=== PATIENT | female | born 1985 | race Caucasian/White ===

== ENCOUNTER 2017-05-18 06:46 | Day surgery (SDC) | payer BC ==
[2017-05-07 14:31] VITALS: BMI 36.3
[~2017-05-18 06:46] MED LIST: CLINDAMYCIN 900 MG in DEXTROSE 5% IN WATER 50 ML IVPB ONE; DEXAMETHASONE SOD PHOSPHATE 10 MG/ML 1 ML VIAL IV ONE; HEPARIN SODIUM,PORCINE 5,000 UNIT/ML 1 ML VIAL SQ ONE; LACTATED RINGERS 1,000 ML IV SCH; LEVOFLOXACIN 500MG-D5W PMX 500 MG in DEXTROSE/WATER 1 100ML.BAG IVPB ONE; MIDAZOLAM 2 MG/2 ML VIAL IV PRN; MORPHINE SULFATE 4MG/4ML SYRG IV PRN; ONDANSETRON 4 MG/2 ML VIAL IVP ONE
[2017-05-18] MEDS ORDERED: LACTATED RINGERS 1,000 ML IV ONE ×3 (07:10→09:37)
[2017-05-18] MEDS ORDERED: LIDOCAINE 1% 20 ML VIAL (10MG/ML) FOR IV START INTRADERMA ONE (07:11)
[2017-05-18] MEDS ORDERED: SCOPOLAMINE 1.5MG/72HR PATCH TRANSDERM ONE (07:24)
[2017-05-18] MEDS ORDERED: BUPIVACAINE (PF) 0.25% 30 ML VIAL SQ ONE ×2 (07:24)
--- NOTE | 2017-05-18 07:56 | P.GSHP ---
History of Present Illness H&P Date: 05/18/17 Chief Complaint: Ventral hernia, incarcerated This is a 32-year-old female who presents today for laparoscopic robotic system repair of incarcerated ventral hernia. Patient developed a 5 cm mass located above her umbilicus. Past Medical History Past Medical History: No Reported History Additional Past Medical History / Comment(s): hernia History of Any Multi-Drug Resistant Organisms: None Reported Past Surgical History: Cholecystectomy Additional Past Surgical History / Comment(s): Colonoscopy,EGD Past Anesthesia/Blood Transfusion Reactions: No Reported Reaction Smoking Status: Never smoker - Past Family History Mother Family Medical History: No Reported History Medications and Allergies Home Medications Medication Instructions Recorded Confirmed Type No Known Home Medications [No 05/07/17 05/07/17 History Known Home Medications] Allergies Allergy/AdvReac Type Severity Reaction Status Date / Time Penicillins Allergy Anaphylaxis Verified 05/07/17 14:25 sulfamethoxazole Allergy Anaphylaxis Verified 05/07/17 14:25 [From Septra] trimethoprim [From Septra] Allergy Anaphylaxis Verified 05/07/17 14:25 Surgical - Exam Vital Signs Temp Pulse Resp BP Pulse Ox 98.4 F 85 18 108/58 95 05/18/17 07:09 05/18/17 07:09 05/18/17 07:09 05/18/17 07:09 05/18/17 07:09 - General well developed, no distress - Eyes PERRL - ENT normal pinna - Neck no masses - Respiratory normal expansion - Cardiovascular Rhythm: regular - Abdomen Abdomen: soft, non tender (5 cm incarcerated ventral hernia located proximal before centimeters above the umbilicus.) Assessment and Plan Assessment: Incarcerated ventral hernia. We'll perform laparoscopic robotic system repair.
[2017-05-18] MEDS ORDERED: GLYCOPYRROLATE 0.2 MG/ML 2 ML VIAL ONE (07:59)
[2017-05-18] MEDS ORDERED: MIDAZOLAM 2 MG/2 ML VIAL ONE (07:59)
[2017-05-18] MEDS ORDERED: LIDOCAINE 1% INJ 10MG/ML (20 ML MDV) ONE (07:59)
[2017-05-18] MEDS ORDERED: MORPHINE SULFATE 10 MG/ML SYRINGE ONE (07:59)
[2017-05-18] MEDS ORDERED: fentaNYL (PF) 50 MCG/ML 2 ML AMP ONE (07:59)
[2017-05-18] MEDS ORDERED: NEOSTIGMINE 1 MG/ML 10 ML VIAL ONE (07:59)
[2017-05-18] MEDS ORDERED: KETOROLAC 30 MG/ML 1 ML VIAL ONE (07:59)
[2017-05-18] MEDS ORDERED: PROPOFOL 10 MG/ML 20 ML VIAL IV ONE (07:59)
[2017-05-18] MEDS ORDERED: SUCCINYLCHOLINE CHLORIDE 100 MG/5 ML SYR IV ONE (07:59)
[2017-05-18] MEDS ORDERED: ROCURONIUM BROMIDE 10 MG/ML 10 ML VIAL IV ONE (07:59)
[2017-05-18 09:41] VITALS: TEMP 97.6
[2017-05-18] MEDS ORDERED: fentaNYL (PF) 50 MCG/ML 2 ML AMP IV ONE (09:41)
--- NOTE | 2017-05-18 09:47 | P.OP ---
Date of Procedure: 05/18/17 Preoperative Diagnosis: Incarcerated ventral hernia Postoperative Diagnosis: Incarcerated ventral hernia Procedure(s) Performed: Laparoscopic robotic repair of incarcerated ventral hernia Partial omentectomy Anesthesia: LOI Surgeon: Kenneth Lim Estimated Blood Loss (ml): 5 Pathology: other Condition: stable Disposition: PACU Description of Procedure: The patient was placed on the operating table in the supine position. He received general anesthesia. His abdomen was prepped and draped usual fashion. Using a 5 mm optical trocar under direct visualization the peritoneal cavity was entered in the left upper quadrant. The abdomen was then insufflated. The laparoscope was placed back into the perineal cavity. Next a 8 mm robotic trocar was placed in the left lower quadrant and a 12 mm robotic trocar was placed in the left lateral position. The original 5 mm trocar was exchanged for a 8 mm robotic trocar. The patient's placed in the left side up position. And the patient was docked to the robot. The ventral hernia was visualized. Using hook cautery the peritoneum over the incisional hernia was excised. The incarcerated omentum was withdrawn from the hernia. The nonviable omentum was transected using electrocautery. The fascial opening was repaired using 0V LOC suture. Next a piece of 11 cm round ventral light ST mesh was placed into the. Cavity and secured with 2 OV lock suture. The patient was undocked the robot. The needles were retrieved. The omentum was retrieved. The fascia of the 12 mm trocar site was closed with 0 Ethibond suture. Skin was closed interrupted 3-0 Monocryl suture. Dermabond dressings was applied. Patient tolerated procedure well and was sent to recovery room stable condition.
[2017-05-18] MEDS ORDERED: fentaNYL (PF) 50 MCG/ML 2 ML AMP IVP ONE (09:50)
[2017-05-18] MEDS ORDERED: diphenhydrAMINE 50 MG/ML 1 ML VIAL IVP ONE (09:55)
[2017-05-18 10:35] VITALS: RESP 18
[2017-05-18 12:38] VITALS: BP 113/75; PULSE 79
[2017-05-18] MEDS ORDERED: HYDROcodone/APAP 7.5-325MG 1 EACH TAB PO ONE (12:39)
== END 2017-05-18 13:36 | disposition home or self-care (01) ==
LOC: OR 06:46
PROVIDERS: ATTEND Surgery
DX: K43.6 Other and unspecified ventral hernia with obstruction, without gangrene (principal); Z90.49 Acquired absence of other specified parts of digestive tract; E66.3 Overweight; Z68.36 Body mass index [BMI] 36.0-36.9, adult; K21.9 Gastro-esophageal reflux disease without esophagitis; Z88.0 Allergy status to penicillin; Z88.2 Allergy status to sulfonamides; Z88.1 Allergy status to other antibiotic agents
CPT/HCPCS: 81025; 86900; 86901; 88305; 86850; 49653; C1781; J2250; J1200; J1644; J1100; J2710; J2270; J2405; J1956; J2001; J3010; J1885; J0330; J2704

== ENCOUNTER → 2020-05-22 | Outpatient (CLI) | payer BC | END | disposition home or self-care (01) | LOC: LABWHC1 15:31 | PROVIDERS: ATTEND Family Medicine | DX: R43.2 Parageusia (principal) | CPT/HCPCS: U0003; C9803 ==

== ENCOUNTER → 2020-05-28 | Outpatient (CLI) | payer BC ==
--- NOTE | 2020-05-28 13:49 | XR ---
EXAMINATION TYPE: XR chest 2V DATE OF EXAM: 05/28/2020 COMPARISON: None HISTORY: 35-year-old female R06, chest pain TECHNIQUE: Frontal and lateral views FINDINGS: Heart size is accentuated due to AP technique. Aorta and pulmonary vasculature within normal limits. Hazy lower lung densities related to overlying soft tissue. No consolidation or pleural effusion seen IMPRESSION: No definite acute process.
== END | disposition home or self-care (01) ==
LOC: RADXRMAIN 13:26
PROVIDERS: ATTEND Family Medicine
DX: R06.00 Dyspnea, unspecified (principal)
CPT/HCPCS: 71046

== ENCOUNTER → 2020-11-06 | Outpatient (CLI) | payer BC ==
--- NOTE | 2020-11-06 14:50 | FL ---
EXAMINATION TYPE: FL hysterosalpingography DATE OF EXAM: 11/06/2020 HISTORY: Infertility. Informed consent was obtained and all the patient's questions were answered. Pulmonary film of the p sharon reveals no distinct abnormality. A speculum was introduced and the external cervical os was lo calize. The external cervical os was cleansed and a Betadine solution on 3 occasions. Hysterosalpin gography catheter was introduced into the uterus and balloon insufflation device deployed. Approxima tely 12 cc of nonionic contrast was injected in a retrograde manner. The uterus has a normal size shape and appearance. No persistent uterine filling defects are seen. Both fallopian tubes fill with contrast. There are moderate bilateral hydrosalpinx right greater than left without evidence for spill into the peritoneal cavity. IMPRESSION: 1. Bilateral hydrosalpinx right greater than left without spill of contrast into the peritoneal cavit y.
== END | disposition home or self-care (01) ==
LOC: RADUSWWP 13:07
PROVIDERS: ATTEND Obstetrics & Gynecology Obstetrics
DX: N70.11 Chronic salpingitis (principal)
CPT/HCPCS: 58340; 74740; Q9967

== ENCOUNTER 2020-11-10 11:38 | Emergency (ER) | payer BC ==
[2020-11-10 12:01] VITALS: BP 132/75; PULSE 84; RESP 18; TEMP 98.7
--- NOTE | 2020-11-10 12:33 | ED ---
General Adult HPI - General Chief complaint: Urogenital Stated complaint: Female & abd pain Time Seen by Provider: 11/10/20 12:04 Source: patient Mode of arrival: ambulatory Limitations: no limitations - History of Present Illness Initial comments: Dictation was produced using [employer] dictation software. please excuse any grammatical, word or spelling errors. Chief Complaint: 35-year-old male presents with abdominal pain. History of Present Illness: She is 35-year-old female. 5 days ago she had a hysterosalpingogram performed by radiology. She is doing fine 2 days after the procedure. 3 days ago she began developing abdominal pain. She states that it's to her epigastric and right side of her abdomen. Worse when she stands up. She does complain of nausea. No vomiting. No diarrhea. No fevers. She has history of cholecystectomy and hernia repair. Patient states that the pain is constant. She was told to expect some mild vaginal bleeding. She has had some mild vaginal bleeding. No discharge. She has not received the results for her procedure. She states that the pain feels like it's in her lower abdomen when she stands. She reports that it feels like it's up top when she is laying down. She had this procedure performed due to difficulties getting . This was ordered by her OPHTHALMOLOGY TECHNICIAN. The ROS documented in this emergency department record has been reviewed and confirmed by me. Those systems with pertinent positive or negative responses have been documented in the HPI. All other systems are other negative and/or noncontributory. PHYSICAL EXAM: General Impression: Alert and oriented x3, not in acute distress HEENT: Normocephalic atraumatic, extra-ocular movements intact, pupils equal and reactive to light bilaterally, mucous membranes moist. Cardiovascular: Heart regular rate and rhythm Chest: Able to complete full sentences, no retractions, no tachypnea Abdomen: abdomen soft, mild palpatory tenderness to the entire abdomen, non- distended, no organomegaly Musculoskeletal: Pulses present and equal in all extremities, no peripheral edema Motor: no focal deficits noted Neurological: CN II-XII grossly intact, no focal motor or sensory deficits noted Skin: Intact with no visualized rashes Psych: Normal affect and mood ED course: 35-year-old female presents with abdominal pain. She is 5 days status post hysterosalpingogram. Vital signs upon arrival are within acceptable limits. Chart review was performed. Patient had hysterosalpingogram performed 5 days ago. Result shows bilateral hydrosalpinx right greater than left without spell of contrast into the peritoneal cavity. It is unclear if this procedure is what is causing patient's symptoms. Pelvic exam: No cervical motion or adnexal tenderness. Cervical os is closed with mild discharge. No evidence of cervical erythema or cervicitis. Vaginal mucosa is pink without any lesions After evaluation obtained. CBC, metabolic panel is unremarkable. Urinalysis shows 7 white blood cells. She does not have any urinary symptoms. Abdominal x-rays nonacute. Patient reevaluated bedside I&D in stable medical condition. Abdominal x-ray is unremarkable. Patient reevaluated at 2:30 PM found to be in stable medical condition. Patient does not appear to be in acute distress. She still reports some mild tenderness. Patient stable for discharge. No life- threatening issues noted. She has follow-up with her paralegals next week. Return precautions discussed. Patient discharge. - Related Data Previous Rx's Medication Instructions Recorded Docusate [Colace] 100 mg PO BID #20 capsule 05/18/17 HYDROcodone/APAP 7.5-325MG [[place] 1 each PO Q4H PRN #30 tab 05/18/17 7.5] Allergies Allergy/AdvReac Type Severity Reaction Status Date / Time Penicillins Allergy Anaphylaxis Verified 11/10/20 12:01 sulfamethoxazole Allergy Anaphylaxis Verified 11/10/20 12:01 [From ] trimethoprim [From ] Allergy Anaphylaxis Verified 11/10/20 12:01 Review of Systems ROS Statement: Those systems with pertinent positive or pertinent negative responses have been documented in the HPI. ROS Other: All systems not noted in ROS Statement are negative. Past Medical History Past Medical History: No Reported History Additional Past Medical History / Comment(s): hernia History of Any Multi-Drug Resistant Organisms: None Reported Past Surgical History: Cholecystectomy, Hernia Repair Additional Past Surgical History / Comment(s): Colonoscopy,EGD Past Anesthesia/Blood Transfusion Reactions: No Reported Reaction Past Psychological History: No Psychological Hx Reported Smoking Status: Never smoker Past Alcohol Use History: Occasional Past Drug Use History: Marijuana - Past Family History Mother Family Medical History: No Reported History General Exam Limitations: no limitations Course Vital Signs 11/10/20 11:58 Temperature 98.7 F Pulse Rate 84 Respiratory 18 Rate Blood Pressure 132/75 O2 Sat by Pulse 96 Oximetry Medical Decision Making - Lab Data Result diagrams: 11/10/20 13:31 11/10/20 13:31 Lab Results 11/10/20 11/10/20 11/10/20 Range/Units 13:31 13:31 13:31 WBC 10.0 (3.8-10.6) k/uL RBC 4.52 (3.80-5.40) m/uL Hgb 14.2 (11.4-16.0) gm/dL Hct 40.9 (34.0-46.0) % MCV 90.6 (80.0-100.0) fL MCH 31.5 (25.0-35.0) pg MCHC 34.7 (31.0-37.0) g/dL RDW 14.2 (11.5-15.5) % Plt Count 368 (150-450) k/uL MPV 6.8 Neutrophils % 75 % Lymphocytes % 17 % Monocytes % 4 % Eosinophils % 1 % Basophils % 0 % Neutrophils # 7.5 (1.3-7.7) k/uL Lymphocytes # 1.7 (1.0-4.8) k/uL Monocytes # 0.4 (0-1.0) k/uL Eosinophils # 0.1 (0-0.7) k/uL Basophils # 0.0 (0-0.2) k/uL Sodium (137-145) mmol/L Potassium (3.5-5.1) mmol/L Chloride (98-107) mmol/L Carbon Dioxide (22-30) mmol/L Anion Gap mmol/L BUN (7-17) mg/dL Creatinine (0.52-1.04) mg/dL Est GFR (CKD-EPI)AfAm (>60 ml/min/1.73 sqM) Est GFR (CKD-EPI)NonAf (>60 ml/min/1.73 sqM) Glucose (74-99) mg/dL Calcium (8.4-10.2) mg/dL Total Bilirubin (0.2-1.3) mg/dL AST (14-36) U/L ALT (4-34) U/L Alkaline Phosphatase (38-126) U/L Total Protein (6.3-8.2) g/dL Albumin (3.5-5.0) g/dL Lipase (23-300) U/L Urine Color Light Yellow Urine Appearance Clear (Clear) Urine pH 6.5 (5.0-8.0) Ur Specific [place] 1.006 (1.001-1.035) Urine Protein Negative (Negative) Urine Glucose (UA) Negative (Negative) Urine Ketones 1+ H (Negative) Urine Blood Negative (Negative) Urine Nitrite Negative (Negative) Urine Bilirubin Negative (Negative) Urine Urobilinogen <2.0 (<2.0) mg/dL Ur Leukocyte Esterase Small H (Negative) Urine WBC 7 H (0-5) /hpf Ur Squamous Epith Cells 1 (0-4) /hpf Urine Mucus Rare H (None) /hpf Urine HCG, Qual Not Detected (Not Detectd) 11/10/20 Range/Units 13:31 WBC (3.8-10.6) k/uL RBC (3.80-5.40) m/uL Hgb (11.4-16.0) gm/dL Hct (34.0-46.0) % MCV (80.0-100.0) fL MCH (25.0-35.0) pg MCHC (31.0-37.0) g/dL RDW (11.5-15.5) % Plt Count (150-450) k/uL MPV Neutrophils % % Lymphocytes % % Monocytes % % Eosinophils % % Basophils % % Neutrophils # (1.3-7.7) k/uL Lymphocytes # (1.0-4.8) k/uL Monocytes # (0-1.0) k/uL Eosinophils # (0-0.7) k/uL Basophils # (0-0.2) k/uL Sodium 140 (137-145) mmol/L Potassium 3.5 (3.5-5.1) mmol/L Chloride 105 (98-107) mmol/L Carbon Dioxide 27 (22-30) mmol/L Anion Gap 8 mmol/L BUN 7 (7-17) mg/dL Creatinine 0.56 (0.52-1.04) mg/dL Est GFR (CKD-EPI)AfAm >90 (>60 ml/min/1.73 sqM) Est GFR (CKD-EPI)NonAf >90 (>60 ml/min/1.73 sqM) Glucose 102 H (74-99) mg/dL Calcium 9.7 (8.4-10.2) mg/dL Total Bilirubin 0.5 (0.2-1.3) mg/dL AST 18 (14-36) U/L ALT 15 (4-34) U/L Alkaline Phosphatase 73 (38-126) U/L Total Protein 7.0 (6.3-8.2) g/dL Albumin 3.9 (3.5-5.0) g/dL Lipase 71 (23-300) U/L Urine Color Urine Appearance (Clear) Urine pH (5.0-8.0) Ur Specific [place] (1.001-1.035) Urine Protein (Negative) Urine Glucose (UA) (Negative) Urine Ketones (Negative) Urine Blood (Negative) Urine Nitrite (Negative) Urine Bilirubin (Negative) Urine Urobilinogen (<2.0) mg/dL Ur Leukocyte Esterase (Negative) Urine WBC (0-5) /hpf Ur Squamous Epith Cells (0-4) /hpf Urine Mucus (None) /hpf Urine HCG, Qual (Not Detectd) Disposition Clinical Impression: Abdominal pain Disposition: HOME SELF-CARE Condition: Good Instructions (If sedation given, give patient instructions): Abdominal Pain (ED) Is patient prescribed a controlled substance at d/c from ED?: No Referrals: Skye Yu DO [Doctor of Osteopathic Medicine] - 1-2 days
--- NOTE | 2020-11-10 14:01 | XR ---
EXAMINATION TYPE: XR abdomen 1V DATE OF EXAM: 11/10/2020 1:57 PM CLINICAL HISTORY: Lower abdominal pain since hysterectomy 5 days ago TECHNIQUE: Two Upright KUB images of the abdomen are obtained. COMPARISON: None. FINDINGS: Scattered gas is seen in non-distended small bowel loops. Gas and fecal material is seen in non-distended colon. Cholecystectomy clips are present. Scattered pelvic phleboliths. No free air. V isualized lung bases are clear. Underlying scoliotic curvature in the lumbar spine is present. IMPRESSION: Overall nonobstructive bowel gas pattern.
[2020-11-10 14:05] LABS: Basophils % (A) 0 %; Eosinophils # (A) 0.1 k/uL (0-0.7); Eosinophils % (A) 1 %; HCT 40.9 % (34.0-46.0); HGB 14.2 gm/dL (11.4-16.0); Lymphocytes # (A) 1.7 k/uL (1.0-4.8); Lymphocytes % (A) 17 %; MCH 31.5 pg (25.0-35.0); MCHC 34.7 g/dL (31.0-37.0); MCV 90.6 fL (80.0-100.0); Mean Platelet Volume 6.8; Monocytes # (A) 0.4 k/uL (0-1.0); Monocytes % (A) 4 %; Neutrophils # (A) 7.5 k/uL (1.3-7.7); Neutrophils % (A) 75 %; Platelet Count 368 k/uL (150-450); RBC 4.52 m/uL (3.80-5.40); RDW 14.2 % (11.5-15.5)
[2020-11-10 14:14] LABS: Appearance,Urine Clear (Clear); Bilirubin,Urine Negative (Negative); Blood,Urine Negative (Negative); Color,Urine Light Yellow; Glucose,Urine (UA) Negative (Negative); Ketones,Urine 1+ (Negative); Leukocyte Esterase,Urine Small (Negative); Mucus,Urine Rare /hpf; Nitrite,Urine Negative (Negative); PH, Urine 6.5 (5.0-8.0); Protein,Urine Negative (Negative); Specific Gravity,Urine 1.006 (1.001-1.035); Squamous Epithelial Cell,Urine 1 /hpf (0-4); Urobilinogen,Urine <2.0 mg/dL (<2.0); WBC,Urine 7 /hpf (0-5)
[2020-11-10 14:18] LABS: ALT 15 U/L (4-34); AST 18 U/L (14-36); African American GFR (CKD) >90 (>60 ml/min/1.73 sqM); Albumin 3.9 g/dL (3.5-5.0); Alkaline Phosphatase 73 U/L (38-126); Anion Gap 8 mmol/L; Blood Urea Nitrogen 7 mg/dL (7-17); Calcium 9.7 mg/dL (8.4-10.2); Carbon Dioxide 27 mmol/L (22-30); Chloride 105 mmol/L (98-107); Glucose 102 mg/dL (74-99); Lipase 71 U/L (23-300); Non-African American GFR(CKD) >90 (>60 ml/min/1.73 sqM); Potassium 3.5 mmol/L (3.5-5.1); Sodium 140 mmol/L (137-145); Total Bilirubin 0.5 mg/dL (0.2-1.3)
== END 2020-11-10 14:56 | disposition home or self-care (01) ==
LOC: EC 11:38
DX: R10.30 Lower abdominal pain, unspecified (principal); R11.0 Nausea; Z88.0 Allergy status to penicillin; Z88.1 Allergy status to other antibiotic agents; Z88.2 Allergy status to sulfonamides; Z90.49 Acquired absence of other specified parts of digestive tract; Z90.710 Acquired absence of both cervix and uterus
CPT/HCPCS: 36415; 74018; 80053; 81001; 81025; 83690; 85025; 87491; 87591; 99284

== ENCOUNTER 2022-01-29 05:58 | Inpatient (IN) | payer BC ==
[2022-01-29] MEDS ORDERED: TERBUTALINE 1 MG/ML VIAL SQ PRN (06:28)
[2022-01-29] MEDS ORDERED: LIDOCAINE 0.5% (PF) 5 MG/ML (50 ML SDV) SQ PRN (06:28)
[2022-01-29] MEDS ORDERED: OXYTOCIN 30 UNITS/500 ML NS 30 UNIT in SALINE 1 500ML.BAG IV SCH ×2 (06:30→13:30)
[2022-01-29 06:35] LABS: Glucose,Whole Blood 86 mg/dL (70-110)
[2022-01-29] MEDS: LACTATED RINGERS 1,000 ML IV SCH ×2 (06:52→09:55)
[2022-01-29 07:50] LABS: Basophils % (A) 0 %; Eosinophils # (A) 0.1 k/uL (0-0.7); Eosinophils % (A) 1 %; HGB 11.1 gm/dL (11.4-16.0); Lymphocytes # (A) 1.9 k/uL (1.0-4.8); Lymphocytes % (A) 20 %; MCHC 33.5 g/dL (31.0-37.0); MCV 86.4 fL (80.0-100.0); Mean Platelet Volume 8.2; Monocytes # (A) 0.5 k/uL (0-1.0); Monocytes % (A) 5 %; Neutrophils # (A) 6.6 k/uL (1.3-7.7); Neutrophils % (A) 71 %; Platelet Count 300 k/uL (150-450); RBC 3.82 m/uL (3.80-5.40); RDW 13.2 % (11.5-15.5); WBC 9.4 k/uL (3.8-10.6)
[2022-01-29] MEDS ORDERED: fentaNYL (PF) 50 MCG/ML 5 ML AMP ONE (11:52)
[2022-01-29] MEDS ORDERED: SODIUM CHLORIDE 0.9% 100 ML BAG ONE (11:52)
[2022-01-29] MEDS ORDERED: ROPIVACAINE 5 MG/ML 20 ML AMPULE ONE (11:52)
[2022-01-29] MEDS ORDERED: LANOLIN CREAM 5 GM TUBE TOPICAL PRN (13:26)
[2022-01-29] MEDS ORDERED: diphenhydrAMINE 50 MG/ML 1 ML VIAL IVP PRN ×2 (13:26)
[2022-01-29] MEDS ORDERED: SIMETHICONE 80 MG CHEWABLE PO PRN (13:26)
[2022-01-29] MEDS ORDERED: diphenhydrAMINE 25 MG CAP PO PRN (13:26)
[2022-01-29] MEDS ORDERED: BENZOCAINE/MENTHOL SPRAY 1 GM/SPRAY AEROSOL TOPICAL PRN (13:26)
[2022-01-29] MEDS ORDERED: diphenhydrAMINE 50 MG CAP PO PRN (13:26)
[2022-01-29] MEDS ORDERED: HYDROCORTISONE 2.5% RECTAL CREAM 30 GM TUBE RECTAL PRN (13:26)
[2022-01-29] MEDS ORDERED: ZOLPIDEM 5 MG TAB PO PRN (13:26)
--- NOTE | 2022-01-29 13:30 | P.PROBDLV ---
Vaginal Delivery Note - . Vaginal Delivery Note: Findings: Viable female delivered at 1313, weight of 7 pounds 13.2 ounces, Apgars of 8 and 9 at one and 5 minutes respectively. Mild shoulder dystocia was appreciated during delivery of the anterior shoulder findings were discussed with mom in detail and questions are answered. Dystocia was resolved with Joann and suprapubic pressure. This is a 37-year-old 2 para 1 at 38 and one sevenths weeks that presents to labor and delivery for induction of labor secondary to poorly controlled gestational diabetes. Patient was admitted to labor and delivery and Pitocin induction of labor was begun per hospital protocol. Patient progressed slowly through labor eventually becoming uncomfortable and requesting epidural placement. Epidural was placed without difficulty by the anesthesia department. Patient quickly progressed to complete and began pushing. With excellent maternal effort patient had delivery of the head the anterior shoulder was delivered after Joann and suprapubic pressure was applied. The body followed and the infant was handed on the maternal abdomen. A spontaneous cry was noted at . After two-minute delayed the umbilical cord cord was doubly clamped and cut. The placenta was delivered spontaneously intact with a three- vessel cord being noted. On inspection the patient's vaginal vault a small first-degree vaginal laceration was appreciated this was repaired in the usual fashion with 4-0 chromic. Hemostasis was appreciated afterwards. Uterus noted be firm and below the umbilicus. Estimated blood loss 200 mL. Patient states she voided just prior to the epidural which was placed just prior to pushing. Patient and tolerated delivery well and are resting comfortably
[2022-01-29] MEDS: IBUPROFEN 600 MG TAB PO SCH (15:07)
[2022-01-29] MEDS ORDERED: MEASLES-MUMPS-RUBELLA VACC/PF 12,500 UNIT/0.5 ML VIAL SQ ONE (19:09)
[2022-01-29] MEDS: SENNOSIDES-DOCUSATE SODIUM 1 EACH TAB PO SCH (20:29)
[2022-01-30] MEDS: ACETAMINOPHEN TAB 325 MG TAB PO PRN ×2 (03:28→17:33)
[2022-01-30 03:35] VITALS: RESP 16
[2022-01-30] MEDS: IBUPROFEN 600 MG TAB PO SCH ×5 (03:36→22:31)
[2022-01-30] MEDS: PRENATAL VIT-IRON-FOLIC ACID 1 EACH TABLET PO SCH (07:50)
[2022-01-30] MEDS: SENNOSIDES-DOCUSATE SODIUM 1 EACH TAB PO SCH ×2 (07:50→20:31)
[2022-01-30] MEDS: metFORMIN 500 MG TAB PO SCH ×2 (07:51→21:07)
[2022-01-30] MEDS: LEVOTHYROXINE 100 MCG TAB PO SCH (07:52)
--- NOTE | 2022-01-30 10:04 | P.HPOB ---
History of Present Illness H&P Date: 01/29/22 Chief Complaint: IUP at 38 2/7 weeks, GDM A1 37 her old at 38-2/7 weeks that presents to labor and delivery for induction of labor secondary to poorly controlled gestational diabetes. Patient has been receiving routine care, located by diagnosis of gestational diabetes, noted poorly controlled blood sugars. Patient has struggled with diet and was placed on metformin with minimal relief of her blood sugars. Today patient does note good movement and occasional contractions no loss of fluid or vaginal bleeding. On bloodwork this patient is a blood type of A+, rubella status nonimmune, B surface antigen negative, HIV negative, RPR is nonreactive, group beta strep culture is negative Review of Systems Constitutional: Denies chills, Denies fatigue, Denies fever Ears, nose, mouth and throat: Denies headache Cardiovascular: Reports leg edema Respiratory: Denies dyspnea Gastrointestinal: Denies constipation, Denies diarrhea, Denies nausea, Denies vomiting Genitourinary: Reports Past Medical History Past Medical History: No Reported History Additional Past Medical History / Comment(s): hernia, hypothyroid, GDM History of Any Multi-Drug Resistant Organisms: None Reported Past Surgical History: Cholecystectomy, Hernia Repair Additional Past Surgical History / Comment(s): Colonoscopy,EGD Past Anesthesia/Blood Transfusion Reactions: No Reported Reaction Past Psychological History: No Psychological Hx Reported Smoking Status: Never smoker Past Alcohol Use History: Occasional - Past Family History Mother Family Medical History: No Reported History Medications and Allergies Home Medications Medication Instructions Recorded Confirmed Type Levothyroxine Sodium [Levoxyl] 100 mcg PO DAILY 01/29/22 01/29/22 History Vit No.180/Iron/Folic 1 tab PO DAILY 01/29/22 01/29/22 History [ Plus Vitamin-Mineral] metFORMIN HCL ER [Glucophage XR] 1 tab PO DAILY 01/29/22 01/29/22 History Allergies Allergy/AdvReac Type Severity Reaction Status Date / Time Penicillins Allergy Anaphylaxis Verified 11/10/20 12:01 sulfamethoxazole Allergy Anaphylaxis Verified 11/10/20 12: [From ] trimethoprim [From ] Allergy Anaphylaxis Verified 11/10/20 12:01 Exam Osteopathic Statement: *. No significant issues noted on an osteopathic structural exam other than those noted in the History and Physical/Consult. Vital Signs Temp Pulse Resp BP 01/29/22 06:17 98.1 F 81 17 122/65 Intake and Output 01/28/22 01/29/22 01/29/22 22:59 06:59 14:59 Other: Weight 103.419 kg Targeted physical exam is performed in this date and licensed practical nurse clinic nurse well-nourished well-developed female in no acute distress, breathing is nonlabored, heart has regular rhythm, abdomen is gravid, on cervical exam she is 2/70/-2 station amniotomy is performed and clear fluid was obtained. heart tones are noted to be category 1 and she was samy irregularly. Results Result Diagrams: 01/29/22 06:36 Abnormal Lab Results - Last 24 Hours (Table) 01/29/22 Range/Units 06:36 Hgb 11.1 L (11.4-16.0) gm/dL Hct 33.0 L (34.0-46.0) % Assessment and Plan (1) Term Current Visit: Yes Status: Acute Code(s): Z34.90 - ENCNTR FOR SUPRVSN OF NO RMAL , UNSP, UNSP TRIMESTER SNOMED Code(s): 50763552 (2) GDM, class A2 Current Visit: Yes Status: Acute Code(s): O24.419 - GESTATIONAL DIABETES MELLITUS IN , UNSP CONTROL SNOMED Code(s): 02545269 Plan: 37-year-old at 38-2/7 weeks that presents for induction of labor secondary to poorly controlled gestational diabetes on metformin. Patient is admitted and Pitocin induction of labor is begun per protocol. Options for analgesia are discussed including epidural, Stadol, nitrous. Patient will consider. Anticipate spontaneous vaginal delivery later today.
--- NOTE | 2022-01-30 10:10 | P.DS ---
Providers Date of admission: 01/29/22 05:58 Expected date of discharge: 01/30/22 Attending physician: Skye Yu Primary care physician: Stated None - Discharge Diagnosis(es) (1) Term Current Visit: Yes Status: Acute (2) GDM, class A2 Current Visit: Yes Status: Acute (3) Status post normal vaginal delivery Current Visit: Yes Status: Acute (4) Obstetric vaginal laceration with first degree perineal laceration Current Visit: Yes Status: Acute Hospital Course: This is a 37-year-old 2 para 1 at 38 and one sevenths weeks that p resented to labor and delivery for induction of labor secondary to poorly controlled gestational diabetes. Patient been receiving routine care complicated by diagnosis of gestational diabetes, she was unable to control her blood sugars with diet therefore metformin added. Continued poor control was noted. Ultrasound revealing a large for gestational age baby in addition. Decision at that point was made for induction of labor secondary to poorly controlled gestational diabetes and suspected LGA. Patient agreed. Patient was admitted to labor and delivery and Pitocin induction of labor was begun per hospital protocol. Patient underwent amniotomy and clear fluid was obtained. Patient made progress through labor eventually becoming uncomfortable and requesting epidural placement. Patient made quick progress after the epidural was placed to complete began pushing. With excellent maternal effort the patient had delivery of the head followed by a mild shoulder dystocia which was reduced with Joann and suprapubic pressure. Infant did note have a noted bruise on the anterior shoulder. Infant was noted to be moving the arm without difficulty. Delivery was discussed with the mom and dad and questions were answered. Approximately 30 seconds in-between delivery of the head and delivery of the body was noted. Patient's course has been uneventful. On this day #1 she is ambulating and voiding without difficulty. She is tolerating a regular diet without nausea or vomiting. She states her pain is well-controlled. She denies concerns and would like discharge home at 24 hours if possible. Patient Condition at Discharge: Good Plan - Discharge Summary New Discharge Prescriptions: No Action Vit No.180/Iron/Folic [ Plus Vitamin-Mineral] 1 tab PO DAILY metFORMIN HCL ER [Glucophage XR] 1 tab PO DAILY Levothyroxine Sodium [Levoxyl] 100 mcg PO DAILY Discharge Medication List Levothyroxine Sodium [Levoxyl] 100 mcg PO DAILY 01/29/22 [History] Vit No.180/Iron/Folic [ Plus Vitamin-Mineral] 1 tab PO DAILY 01/29/22 [History] metFORMIN HCL ER [Glucophage XR] 1 tab PO DAILY 01/29/22 [History] Follow up Appointment(s)/Referral(s): Skye Yu DO [Doctor of Osteopathic Medicine] - 4 Weeks Patient Instructions/Handouts: Vaginal Delivery (GEN), Vaginal Delivery (DC) Discharge Disposition: HOME SELF-CARE
[2022-01-31] MEDS: LEVOTHYROXINE 100 MCG TAB PO SCH (08:45)
[2022-01-31] MEDS: PRENATAL VIT-IRON-FOLIC ACID 1 EACH TABLET PO SCH (08:45)
[2022-01-31] MEDS: SENNOSIDES-DOCUSATE SODIUM 1 EACH TAB PO SCH (08:46)
[2022-01-31] MEDS: ACETAMINOPHEN TAB 325 MG TAB PO PRN (08:46)
[2022-01-31] MEDS: metFORMIN 500 MG TAB PO SCH (08:59)
[2022-01-31] MEDS: IBUPROFEN 600 MG TAB PO SCH ×2 (13:08→15:40)
[2022-01-31 16:42] VITALS: BP 128/76; PULSE 93; TEMP 97.8
== END 2022-01-31 16:35 | disposition home or self-care (01) | DRG 807 ==
LOC: 4FBP 05:58
PROVIDERS: ADMIT Obstetrics & Gynecology Obstetrics; ATTEND Obstetrics & Gynecology Obstetrics
PROC: 10E0XZZ Delivery of Products of Conception, External Approach (ICD-10-PCS; principal; 2022-01-29)
PROC: 0HQ9XZZ Repair Perineum Skin, External Approach (ICD-10-PCS; principal; 2022-01-29)
DX: O24.425 Gestational diabetes mellitus in childbirth, controlled by oral hypoglycemic drugs (principal); Z37.0 Single live birth; O36.63X0 Maternal care for excessive fetal growth, third trimester, not applicable or unspecified; E03.9 Hypothyroidism, unspecified; O66.0 Obstructed labor due to shoulder dystocia; O99.284 Endocrine, nutritional and metabolic diseases complicating childbirth; O70.0 First degree perineal laceration during delivery; Z3A.38 38 weeks gestation of pregnancy; Z79.890 Hormone replacement therapy; Z88.0 Allergy status to penicillin; Z88.2 Allergy status to sulfonamides; Z28.310 Unvaccinated for COVID-19; Z28.21 Immunization not carried out because of patient refusal
CPT/HCPCS: 85025; 86850; 86900; 86901; 90707